=== PATIENT | female | born 1945 | race Caucasian/White ===

== ENCOUNTER 2022-01-25 13:05 | Day surgery (SDCO) | payer MEDICARE, OTHER ==
[~2022-01-25] VITALS: Ht 154.9 cm; Wt 77.4 kg
[~2022-01-25 13:05] MED LIST: CLARITIN10 MG PO; FAMOTIDINE20 MG PO; GLIMEPIRIDE1 MG PO; HYDROCODON-ACE1 EAC4 PO; LACTULOSE10 G/15 ML PO; LEVOTHYROXINE50 MCG PO; LORAZEPAM 0.5M0.5 MG PO; LOSARTAN-HCTZ1 EAC1 PO; MEDROL 4MG DOSEP4 MG PO; PROGESTERONE200 MG PO; SIMVASTATIN40 MG PO; SINEQUAN10 MG PO; TRADJENTA5 MG PO; VENLAFAXINE HCL75 M1 PO
[2022-01-25 13:43] LABS: BASOPHIL 0.4 % (0-2); EOSINOPHIL 2.3 % (0-7); HGB 11.6 g/dl (12.5-16.0); LYMPHOCYTE 13.9 % (15-48); MCH 28.6 pg (25.0-31.0); MCHC 32.2 g/dL (32.0-36.0); MCV 88.9 fL (78.0-100.0); MONOCYTE 5.8 % (0-12); MPV 10.6 fL (6.0-9.5); NEUTROPHIL 77.1 % (41-80); NRBC 0; PLT 224 K/uL (150-400); RBC 4.05 M/uL (4.20-5.40); RDW 13.3 % (11.5-14.0); WBC 10.4 K/uL (4.0-10.5)
[2022-01-25 14:04] LABS: INR 1.11 (0.9-1.2); PROTHROMBIN TIME 13.7 SECONDS (11.8-13.4); PTT 23.9 SECONDS (24.4-34.7)
[2022-01-25 14:47] LABS: ALBUMIN 3.5 g/dL (3.4-5.0); BILIRUBIN - TOTAL 0.3 mg/dL (0.2-1.0); BUN/CREAT RATIO (CALC) 22.2 RATIO; CREATININE 0.81 mg/dL (0.51-0.95); GLOBULIN (CALCULATION) 3.1 g/dL; POTASSIUM 4.3 mmol/L (3.5-5.1); TOTAL PROTEIN 6.6 g/dL (6.4-8.2)
[2022-01-25] MEDS ORDERED: VENLAFAXINE HCL75 M1 PO (17:08)
[2022-01-25] MEDS ORDERED: METFORMIN HCL500 MG PO (17:08)
[2022-01-25] MEDS ORDERED: COZAAR100 MG PO (17:09)
[2022-01-25] MEDS ORDERED: COREG 6.25MG6.25 MG PO (17:09)
[2022-01-25] MEDS ORDERED: ASPIRIN EC81 MG PO (17:09)
[2022-01-25] MEDS ORDERED: PLAVIX75 MG PO (17:10)
[2022-01-25] MEDS ORDERED: GLUCOTROL XL5 MG PO (17:10)
[2022-01-25] MEDS ORDERED: PEPCID AC20 MG PO (17:10)
[2022-01-25 20:58] LABS: IRON % SATURATION 17.9 %SAT (20-50)
[2022-01-25 21:28] LABS: FOLIC ACID (SERUM) 9.6 ng/mL (8.6-58.9)
[2022-01-26 06:35] LABS: BASOPHIL 0.5 % (0-2); EOSINOPHIL 2.3 % (0-7); HCT 36.5 % (37.0-47.0); HGB 11.7 g/dl (12.5-16.0); LYMPHOCYTE 22.6 % (15-48); MCH 28.1 pg (25.0-31.0); MCHC 32.1 g/dL (32.0-36.0); MCV 87.5 fL (78.0-100.0); MONOCYTE 7.3 % (0-12); MPV 10.5 fL (6.0-9.5); NRBC 0; RBC 4.17 M/uL (4.20-5.40); RDW 13.3 % (11.5-14.0); WBC 7.5 K/uL (4.0-10.5)
[2022-01-26 07:03] LABS: PLT 234 K/uL (150-400)
[2022-01-26 07:53] LABS: BUN/CREAT RATIO (CALC) 21.3 RATIO; CREATININE 0.75 mg/dL (0.51-0.95); MAGNESIUM 2.1 mg/dL (1.8-2.4)
[2022-01-26] MEDS ORDERED: AMARYL2 MG PO (08:08)
[2022-01-26] MEDS ORDERED: ISOSORBIDE MONO30 MG PO (13:48)
[2022-01-26] MEDS ORDERED: NORVASC2.5 MG PO (13:48)
== END 2022-01-26 14:41 | disposition home or self-care (01) ==
LOC: FER 13:05 → FTCU 15:50
PROVIDERS: Emergency Medicine; ADMIT Internal Medicine
DX: I25.119 Atherosclerotic heart disease of native coronary artery with unspecified angina pectoris (principal); I10 Essential (primary) hypertension; E78.5 Hyperlipidemia, unspecified; E11.9 Type 2 diabetes mellitus without complications; K21.9 Gastro-esophageal reflux disease without esophagitis; E03.9 Hypothyroidism, unspecified; I25.2 Old myocardial infarction; Z95.5 Presence of coronary angioplasty implant and graft; Z91.19 Patient's noncompliance with other medical treatment and regimen; Z79.02 Long term (current) use of antithrombotics/antiplatelets; Z79.82 Long term (current) use of aspirin; Z95.1 Presence of aortocoronary bypass graft; Z87.891 Personal history of nicotine dependence; Z78.0 Asymptomatic menopausal state
CPT/HCPCS: 36415; 71045; 80048; 80053; 80061; 82607; 82746; 82962; 83540; 83550; 83735; 84484; 85025; 85610; 85730; 93005; G0378

== ENCOUNTER 2022-04-06 10:44 | Emergency (ER) | payer MEDICARE, OTHER ==
[~2022-04-06 10:44] MED LIST changes: +AMARYL2 MG PO; +ASPIRIN EC81 MG PO; +COREG 6.25MG6.25 MG PO; +COZAAR100 MG PO; +GLUCOTROL XL5 MG PO; +ISOSORBIDE MONO30 MG PO; +METFORMIN HCL500 MG PO; +NORVASC2.5 MG PO; +PEPCID AC20 MG PO; +PLAVIX75 MG PO
[2022-04-06] MEDS ORDERED: CYCLOBENZAPRINE10 MG PO (14:05)
[2022-04-06] MEDS ORDERED: PREDNISONE 20MG20 MG PO (14:05)
== END 2022-04-06 14:20 | disposition home or self-care (01) ==
LOC: FER 10:44
DX: M54.16 Radiculopathy, lumbar region (principal); I10 Essential (primary) hypertension; E11.9 Type 2 diabetes mellitus without complications
CPT/HCPCS: 72131